=== PATIENT | female | born 1965 | race Caucasian/White ===

== ENCOUNTER 2021-08-08 15:30 | Emergency (ER) | payer BC ==
[~2021-08-08] VITALS: Ht 154.9 cm; Wt 90.9 kg
[2021-08-08] MEDS ORDERED: ACET-2247 PO (15:36)
[2021-08-08] MEDS ORDERED: LIDOCAINE 5% TRANSDERMAL PATCH TD ONE (16:15)
[2021-08-08] MEDS ORDERED: KETOROLAC TROMETHAMINE 30 MG/ML VIAL IM ONE (16:15)
[2021-08-08] MEDS ORDERED: OxyCODONE HCL 5 MG IR TABLET PO ONE (16:15)
[2021-08-08 16:41] LABS: APPEARANCE,URINE CLEAR (CLEAR); BILIRUBIN,URINE NEGATIVE (NEGATIVE); GLUCOSE, URINE (UA) NEGATIVE (NEGATIVE); KETONES,URINE NEGATIVE (NEGATIVE); LEUKOCYTE ESTERASE ,URINE NEGATIVE (NEGATIVE); NITRATE,URINE NEGATIVE (NEGATIVE); OCCULT BLOOD,URINE NEGATIVE (NEGATIVE); PH,URINE 6.5 (5.0-8.0); PROTEIN,URINE NEGATIVE (NEGATIVE)
[2021-08-08 17:13] VITALS: BP 139/77
== END 2021-08-08 17:14 | disposition home or self-care (01) ==
LOC: EMS 15:35
DX: M54.16 Radiculopathy, lumbar region (principal)
CPT/HCPCS: 81003; 96372; 99283; J1885